=== PATIENT | female | born 1975 | race Caucasian/White ===

== ENCOUNTER 2018-11-01 11:46 | Emergency (ER) | payer OTHER ==
[~2018-11-01] VITALS: Ht 162.6 cm; Wt 68.0 kg
--- NOTE | 2018-11-01 12:20 | NUR ---
X-RAY AT BEDSIDE AT THIS TIME.
--- NOTE | 2018-11-01 12:38 | Diagnostic Imaging Report ---
RIGHT WRIST - 3 Images HISTORY: Fell, dancing COMPARISON: None available. FINDINGS: Bones: Subtle linear incomplete linear lucencies at the distal radius and ulna on the frontal view, oblique of the radius and longitudinal of the ulna. Joints: Osseous alignment is within normal limits and the joint spaces are well-maintained. Soft tissues: Regional soft tissue swelling. IMPRESSION: Findings which could be seen in the setting of nondisplaced distal radial and ulnar fractures, correlate for focal point tenderness. Signed by: Dr. Rasta Sumner D.O., M.M.M. on 11/01/2018 12:35 PM
--- NOTE | 2018-11-01 12:50 | NUR ---
VELCRO SPLINT APPLIED AT THIS TIME TO RT WRIST.
[2018-11-01 13:00] VITALS: BP 142/87
--- NOTE | 2018-11-01 13:00 | NUR ---
CYNDEE CRESPO, ENP AT BEDSIDE AT THIS TIME APPLYING SPLINT TO RT WRIST.
[2018-11-01] MEDS ORDERED: HYDROCODONE/APAP 10MG-325MG TAB PO ONE (13:15)
== END 2018-11-01 13:12 | disposition home or self-care (01) ==
LOC: ER 11:48
DX: S52.381A Bent bone of right radius, initial encounter for closed fracture (principal); W18.39XA Other fall on same level, initial encounter; Y92.511 Restaurant or cafe as the place of occurrence of the external cause
CPT/HCPCS: 99283

== ENCOUNTER 2020-08-18 09:11 | Inpatient (IN) | payer BC, OTHER ==
[~2020-08-18] VITALS: Ht 162.6 cm; Wt 74.8 kg
[2020-08-18 09:41] LABS: BASOPHILS # (AUTO) 0.1 (0.0-0.1); BASOPHILS % 0.3 % (0.0-1.0); EOSINOPHILS % 0.1 % (0.0-6.0); HEMOGLOBIN 11.9 g/dL (12.0-16.0); LYMPHOCYTES # (AUTO) 0.4 (1.0-3.2); LYMPHOCYTES % 1.6 % (18.0-39.1); MEAN CORPUSCULAR HEMOGLOBIN 28.4 pg (28-32); MEAN CORPUSCULAR HGB CONC 32.2 g/dL (31-35); MEAN CORPUSCULAR VOLUME 88.3 fL (81-99); MONOCYTES # (AUTO) 0.5 (0.2-0.8); MONOCYTES % 2.2 % (4.4-11.3); NEUTROPHILS # (AUTO) 20.9 (2.1-6.9); NEUTROPHILS % 94.8 % (38.7-80.0); PLATELET COUNT 235 x10e3/uL (140-360); RED BLOOD COUNT 4.19 x10e6/uL (3.6-5.1); RED CELL DISTRIBUTION WIDTH 14.8 % (11.7-14.4)
[2020-08-18] MEDS ORDERED: SODIUM CHLORIDE 0.9% 1000ML 1,000 ML IV STA (09:44)
[2020-08-18 09:58] LABS: CLARITY,URINE SL CLOUDY (CLEAR); COLOR,URINE YELLOW (YELLOW); LEUKOCYTE ESTERASE ,URINE TRACE (NEGATIVE); NITRITE,URINE POSITIVE (NEGATIVE)
[2020-08-18 09:59] LABS: BILIRUBIN,URINE SMALL (NEGATIVE); KETONES,URINE 2+ (NEGATIVE); PREGNANCY TEST, URINE NEGATIVE (NEGATIVE); PROTEIN,URINE DIPSTICK 1+ (NEGATIVE); URINE UROBILINOGEN 0.2 mg/dL (0.2 - 1)
[2020-08-18] MEDS ORDERED: KETOROLAC TROMETHAMINE 30 MG/ML VIAL IV STA (10:00)
[2020-08-18] MEDS ORDERED: ONDANSETRON HCL INJ 2MG/ML 2ML 2 MG/ML VIAL IV STA (10:00)
[2020-08-18 10:07] LABS: ALBUMIN 3.9 g/dL (3.5-5.0); ALBUMIN/GLOBULIN RATIO 1.1 (0.8-2.0); ANION GAP 13.5 mmol/L (8-16); CALCIUM 9.4 mg/dL (8.4-10.2); CREATININE, SERUM 1.08 mg/dL (0.57-1.11); POTASSIUM 3.5 mmol/L (3.5-5.1)
--- NOTE | 2020-08-18 10:18 | Emergency Department Note ---
History of Present Illnes History of Present Illness Chief Complaint: Genitourinary History of Present Illness This is a 45 year old female PT STATES SHE HAS BEEN HAVING "KIDNEY" PAIN SINCE YESTERDAY ACCOMPANIED WITH NAUSEA AND VOMITING. PT STATES SHE HAS A HX OF KIDNEY INFECTION AND HAS HAD A STENT PLACED 5 YEARS AGO. PT STATES SHE HAS ABD PAIN WELL. PT STATES SHE WENT TO AN URGENT CARE THIS AM PRIOR TO COMING TO ER. URGENT CARE ADVISED PT TO GO TO ER. 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 Any updates have been documented here. Past Medical History Recent Fever: No Clinical Suspicion of Infectio: No New/Unexplained Change in Ment: No Past Medical History: Kidney Stones Other Medical History: BREAT AUGMENTATION & TUMMY TUCK Past Surgical History: Tubal Ligation, Other Surgery: kidney stents cosmetic sx Social History Smoking Cessation: Never Smoker Counseling Performed: No Alcohol Use: None Any Illegal Drug Use: No TB Exposure/Symptoms: No Physically hurt or threatened: No Family History Family history of heart diseas: No Other Any Pre-Existing Lines (PICC,: No Review of Systems Review of Systems Constitutional: Reports no symptoms EENTM: Reports no symptoms Cardiovascular: Reports no symptoms Respiratory: Reports no symptoms Gastrointestinal: Reports nausea, Reports vomiting Genitourinary: Reports pain (LEFT FLANK) Musculoskeletal: Reports no symptoms Integumentary: Reports no symptoms Neurological: Reports no symptoms Psychological: Reports no symptoms Endocrine: Reports no symptoms Hematological/Lymphatic: Reports no symptoms Review of other systems: All other systems negative Physical Exam Related Data Allergies: Coded Allergies: No Known Allergies (Unverified , 11/01/18) Triage Vital Signs Vital Signs Date Time Temp Pulse Resp B/P (MAP) Pulse Ox O2 Delivery O2 Flow Rate FiO2 08/18/20 09:20 97.7 94 16 111/56 100 Room Air Vital signs reviewed: Yes Physical Exam CONSTITUTIONAL Constitutional: Present well-developed, Present well-nourished HENT HENT: Present normocephalic, Present atraumatic, Present oropharynx clear/moist, Present nose normal HENT L/R: Present left ext ear normal, Present right ext ear normal EYES Eyes: Reports PERRL, Reports conjunctivae normal NECK Neck: Present ROM normal PULMONARY Pulmonary: Present effort normal, Present breath sounds normal CARDIOVASCULAR Cardiovascular: Present regular rhythm, Present heart sounds normal, Present capillary refill normal, Present normal rate GASTROINTESTINAL Abdominal: Present soft, Present nontender, Present bowel sounds normal, Present left CVA tenderness GENITOURINARY Genitourinary: Present exam deferred SKIN Skin: Present warm, Present dry MUSCULOSKELETAL Musculoskeletal: Present ROM normal NEUROLOGICAL Neurological: Present alert, Present oriented x 3, Present no gross motor or sensory deficits PSYCHOLOGICAL Psychological: Present mood/affect normal, Present judgement normal Results Laboratory Result Diagram: 08/18/20 0925 Laboratory Laboratory Tests Test 08/18/20 09:25 White Blood Count 22.03 x10e3/uL (4.8-10.8) Red Blood Count 4.19 x10e6/uL (3.6-5.1) Hemoglobin 11.9 g/dL (12.0-16.0) Hematocrit 37.0 % (34.2-44.1) Mean Corpuscular Volume 88.3 fL (81-99) Mean Corpuscular Hemoglobin 28.4 pg (28-32) Mean Corpuscular Hemoglobin Concent 32.2 g/dL (31-35) Red Cell Distribution Width 14.8 % (11.7-14.4) Platelet Count 235 x10e3/uL (140-360) Neutrophils (%) (Auto) 94.8 % (38.7-80.0) Lymphocytes (%) (Auto) 1.6 % (18.0-39.1) Monocytes (%) (Auto) 2.2 % (4.4-11.3) Eosinophils (%) (Auto) 0.1 % (0.0-6.0) Basophils (%) (Auto) 0.3 % (0.0-1.0) Neutrophils # (Auto) 20.9 (2.1-6.9) Lymphocytes # (Auto) 0.4 (1.0-3.2) Monocytes # (Auto) 0.5 (0.2-0.8) Eosinophils # (Auto) 0.0 (0.0-0.4) Basophils # (Auto) 0.1 (0.0-0.1) Absolute Immature Granulocyte (auto 0.22 x10e3/uL (0-0.1) Urine Color Yellow (YELLOW) Urine Clarity Sl cloudy (CLEAR) Urine pH 7 (5 - 7) Urine Specific [place] 1.025 (1.010-1.025) Urine Protein 1+ (NEGATIVE) Urine Glucose (UA) Negative (NEGATIVE) Urine Ketones 2+ (NEGATIVE) Urine Blood Small (NEGATIVE) Urine Nitrite Positive (NEGATIVE) Urine Bilirubin Small (NEGATIVE) Urine Urobilinogen 0.2 mg/dL (0.2 - 1) Urine Leukocyte Esterase Trace (NEGATIVE) Urine RBC 11-20 /HPF (0-5) Urine WBC 6-10 /HPF (0-5) Urine Epithelial Cells Few /LPF (NONE) Urine Bacteria Rare /HPF (NONE) Urine Test Negative (NEGATIVE) Sodium Level 136 mmol/L (136-145) Potassium Level 3.5 mmol/L (3.5-5.1) Chloride Level 104 mmol/L (98-107) Carbon Dioxide Level 22 mmol/L (22-29) Anion Gap 13.5 mmol/L (8-16) Blood Urea Nitrogen 17 mg/dL (7-26) Creatinine 1.08 mg/dL (0.57-1.11) Estimat Glomerular Filtration Rate 55 ML/MIN (60-) BUN/Creatinine Ratio 16 (6-25) Glucose Level 101 mg/dL (74-118) Calcium Level 9.4 mg/dL (8.4-10.2) Total Bilirubin 0.5 mg/dL (0.2-1.2) Aspartate Amino Transf (AST/SGOT) 16 IU/L (5-34) Alanine Aminotransferase (ALT/SGPT) 10 IU/L (0-55) Alkaline Phosphatase 59 IU/L (40-150) Total Protein 7.6 g/dL (6.5-8.1) Albumin 3.9 g/dL (3.5-5.0) Globulin 3.7 g/dL (2.3-3.5) Albumin/Globulin Ratio 1.1 (0.8-2.0) Laboratory Tests Test 08/18/20 09:25 White Blood Count 22.03 x10e3/uL (4.8-10.8) Red Blood Count 4.19 x10e6/uL (3.6-5.1) Hemoglobin 11.9 g/dL (12.0-16.0) Hematocrit 37.0 % (34.2-44.1) Mean Corpuscular Volume 88.3 fL (81-99) Mean Corpuscular Hemoglobin 28.4 pg (28-32) Mean Corpuscular Hemoglobin Concent 32.2 g/dL (31-35) Red Cell Distribution Width 14.8 % (11.7-14.4) Platelet Count 235 x10e3/uL (140-360) Neutrophils (%) (Auto) 94.8 % (38.7-80.0) Lymphocytes (%) (Auto) 1.6 % (18.0-39.1) Monocytes (%) (Auto) 2.2 % (4.4-11.3) Eosinophils (%) (Auto) 0.1 % (0.0-6.0) Basophils (%) (Auto) 0.3 % (0.0-1.0) Neutrophils # (Auto) 20.9 (2.1-6.9) Lymphocytes # (Auto) 0.4 (1.0-3.2) Monocytes # (Auto) 0.5 (0.2-0.8) Eosinophils # (Auto) 0.0 (0.0-0.4) Basophils # (Auto) 0.1 (0.0-0.1) Absolute Immature Granulocyte (auto 0.22 x10e3/uL (0-0.1) Urine Color Yellow (YELLOW) Urine Clarity Sl cloudy (CLEAR) Urine pH 7 (5 - 7) Urine Specific [place] 1.025 (1.010-1.025) Urine Protein 1+ (NEGATIVE) Urine Glucose (UA) Negative (NEGATIVE) Urine Ketones 2+ (NEGATIVE) Urine Blood Small (NEGATIVE) Urine Nitrite Positive (NEGATIVE) Urine Bilirubin Small (NEGATIVE) Urine Urobilinogen 0.2 mg/dL (0.2 - 1) Urine Leukocyte Esterase Trace (NEGATIVE) Urine Test Negative (NEGATIVE) Imaging Imaging results reviewed: Yes Impressions EXAM: CT Abdomen and Pelvis WITHOUT intravenous contrast INDICATION: Flank pain COMPARISON: None. TECHNIQUE: Abdomen and pelvis were scanned utilizing a multidetector helical scanner from the lung base to the pubic symphysis without administration of IV contrast. Coronal and sagittal reformations were obtained. IV CONTRAST: None ORAL CONTRAST: Water COMPLICATIONS: None RADIATION DOSE: Total DLP: 394 mGy*cm Dose modulation, iterative reconstruction, and/or weight based adjustment of the mA/kV was utilized to reduce the radiation dose to as low as reasonably achievable. FINDINGS: LOWER THORAX: No lung base consolidation. Bilateral saline breast implants. HEPATOBILIARY: No focal hepatic lesions. No biliary ductal dilatation. The gallbladder appears unremarkable. SPLEEN: No splenomegaly. PANCREAS: No focal masses or ductal dilatation. ADRENALS: No adrenal nodules. KIDNEYS/URETERS: 8 mm left proximal ureteral calculus resulting in mild left hydronephrosis and proximal hydroureter. Additional 2 mm left upper and left lower pole renal calculi. Extensive left perinephric retroperitoneal fat stranding without focal fluid collection. There is also a 7 mm right proximal ureteral calculus. No right hydronephrosis or hydroureter. PELVIC ORGANS/BLADDER: Unremarkable. PERITONEUM / RETROPERITONEUM: No free air or fluid. LYMPH NODES: No lymphadenopathy. VESSELS: Scattered atherosclerotic arterial calcifications. GI TRACT: No distention or wall thickening. BONES AND SOFT TISSUES: Unremarkable. IMPRESSION: 8 mm left proximal ureteral obstructive calculus results in mild left hydronephrosis and proximal left hydroureter. Extensive left perinephric retroperitoneal fat stranding likely reflective of upper urinary tract infection. Additional 2 mm left upper and left lower pole renal calculi. 7 mm right proximal ureteral calculus without associated hydronephrosis or hydroureter. Signed by: Norberto Agosto MD on 08/18/2020 11:32 AM Assessment & Plan Medical Decision Making MDM FLANK PAIN, REMOTE HX OF KIDNEY STONE - CBC, CHEM, UA/CX, CT ABD/PELVIS - EVAL URETEROLITHIASIS, UTI/PYELO, RENAL INSUFF, ELECTROLYTE ABNL, LEUKOCYTOSIS Reassessment Reassessment ADMIT TO DR DODSON (FOR DR MATTSON), SPOKE WITH DR SEALS - SAYS CLEAR LIQ DIET, HE WILL SEE AND ASSESS FOR STENT Assessment & Plan Final Impression: (1) Pyelonephritis (2) Ureteral stone with hydronephrosis Depart Disposition: ADMITTED Last Vital Signs Date Time Temp Pulse Resp B/P (MAP) Pulse Ox O2 Delivery O2 Flow Rate FiO2 08/18/20 09:20 97.7 94 16 111/56 100 Room Air Medications in the ED Sodium Chloride 1,000 ml @ 0 mls/hr Q0M STAT IV Last administered on 08/18/20at 10:08; Admin Dose 999 MLS/HR; Start 08/18/20 at 09:44; Stop 08/18/20 at 09:45; Status DC Ondansetron HCl 4 mg ONCE STAT IV Last administered on 08/18/20at 10:08; Admin Dose 4 MG; Start 08/18/20 at 10:00; Stop 08/18/20 at 10:14; Status DC Ketorolac Tromethamine 30 mg ONCE STAT IV Last administered on 08/18/20at 10:08; Admin Dose 30 MG; Start 08/18/20 at 10:00; Stop 08/18/20 at 10:15; Status DC YULI ALLISON MD Aug 18, 2020 10:18
--- OUTSIDE RECORDS SUMMARY | 2020-08-18 10:18 | XMS REPORT | Continuity of Care Document ---
Author Author [facility] Organization [facility] Address [address] [place] [address] [address] [place] [address] Phone Unavailable Care Team Providers Care Surgical Assistant Certified Name Role Phone Tonny MATTSON MD PCP Jesús MENDOZA Unavailable Payers Payer Name Policy Type Policy Number Effective Date Expiration Date Jesús Martinez o [id number] 2015 00:00:00 [facility] Problems This patient has no known problems. Allergies, Adverse Reactions, Alerts This patient has no known allergies or adverse reactions. Medications This patient has no known medications. Procedures This patient has no known procedures. Encounters Start Date/Time End Date/Time [facility]counter [facility] ID Source 2018-11-01 11:48:00 2018-11-01 13:12:00 Departed Emergency Room 1 NIDA MENDOZA [facility] [id number] [facility] Results Test Description Test Time Test Comments Results Result Comments Source WRIST COMPLETE RIGHT 2018-11-01 12:32:00 [facility] [address] [place], [place] [address] Patient Name: JED CRUZ MR #: [id number] : 1975 Age/Sex: 43/F Req #: [id number] Adm Physician: Ordered by: NIDA MENDOZA MD Report #: [id number] Location: ER Room/Bed: Procedure: [id number] DX/WRIST COMPLETE RIGHT Exam Date: 11/01/18 Exam Time: 1220 REPORT STATUS: Signed RIGHT WRIST - 3 Images HISTORY: Fell, dancing COMPARISON: None available. FINDINGS: Bones: Subtle linear incomplete linear lucencies at the distal radius and ulna on the frontal view, oblique of the radius and longitudinal of the ulna. Joints: Osseous alignment is within normal limits and the joint spaces are well-maintained. Soft tissues: Regional soft tissue swelling. IMPRESSION: Findings which could be seen in the setting of nondisplaced distal radial and ulnar fractures, correlate for focal point tenderness. Signed by: Prosper MartinezODavid, M.M.M. on 11/01/2018 12:35 PM Dictated By: LEONARD SALCEDO DO 1235 Transcribed By: SHAHID on 11/01/18 1235 COPY TO: NIDA MENDOZA MD
[2020-08-18 10:21] LABS: BACTERIA,URINE RARE /HPF; EPITHELIAL CELLS,URINE FEW /LPF
[2020-08-18] MEDS ORDERED: CEFTRIAXONE SOD 1 GM/NS 50 ML 50 ML IV ONE (11:00)
--- NOTE | 2020-08-18 11:35 | Diagnostic Imaging Report ---
EXAM: CT Abdomen and Pelvis WITHOUT intravenous contrast INDICATION: Flank pain COMPARISON: None. TECHNIQUE: Abdomen and pelvis were scanned utilizing a multidetector helical scanner from the lung base to the pubic symphysis without administration of IV contrast. Coronal and sagittal reformations were obtained. IV CONTRAST: None ORAL CONTRAST: Water COMPLICATIONS: None RADIATION DOSE: Total DLP: 394 mGy*cm Dose modulation, iterative reconstruction, and/or weight based adjustment of the mA/kV was utilized to reduce the radiation dose to as low as reasonably achievable. FINDINGS: LOWER THORAX: No lung base consolidation. Bilateral saline breast implants. HEPATOBILIARY: No focal hepatic lesions. No biliary ductal dilatation. The gallbladder appears unremarkable. SPLEEN: No splenomegaly. PANCREAS: No focal masses or ductal dilatation. ADRENALS: No adrenal nodules. KIDNEYS/URETERS: 8 mm left proximal ureteral calculus resulting in mild left hydronephrosis and proximal hydroureter. Additional 2 mm left upper and left lower pole renal calculi. Extensive left perinephric retroperitoneal fat stranding without focal fluid collection. There is also a 7 mm right proximal ureteral calculus. No right hydronephrosis or hydroureter. PELVIC ORGANS/BLADDER: Unremarkable. PERITONEUM / RETROPERITONEUM: No free air or fluid. LYMPH NODES: No lymphadenopathy. VESSELS: Scattered atherosclerotic arterial calcifications. GI TRACT: No distention or wall thickening. BONES AND SOFT TISSUES: Unremarkable. IMPRESSION: 8 mm left proximal ureteral obstructive calculus results in mild left hydronephrosis and proximal left hydroureter. Extensive left perinephric retroperitoneal fat stranding likely reflective of upper urinary tract infection. Additional 2 mm left upper and left lower pole renal calculi. 7 mm right proximal ureteral calculus without associated hydronephrosis or hydroureter. Signed by: Norberto Agosto MD on 08/18/2020 11:32 AM
[2020-08-18] MEDS ORDERED: MORPHINE SULFATE 2 MG/ML SYR 1ML IV PRN ×2 (12:15→12:45)
[2020-08-18] MEDS: SODIUM CHLORIDE 0.9% 1000ML 1,000 ML IV SCH (12:34)
[2020-08-18] MEDS ORDERED: MORPHINE SULFATE INJ 4 MG/ML INJ 1ML IV PRN ×2 (12:45→15:45)
--- OUTSIDE RECORDS SUMMARY | 2020-08-18 13:18 | XMS REPORT | Continuity of Care Document ---
Author Author [facility] Organization [facility] Address [address] [place] [address] Phone Unavailable Care Team Providers Care Field Consultant Name Role Phone Tonny MATTSON MD PCP Moreno ALLISON Attphys Unavailable Jesús MENDOZA Attphys Unavailable Payers Payer Name Policy Type Policy Number Effective Date Expiration Date Jesús Martinez o [id number] 2015 00:00:[address] [facility] Problems This patient has no known problems. Allergies, Adverse Reactions, Alerts This patient has no known allergies or adverse reactions. Medications This patient has no known medications. Procedures This patient has no known procedures. Encounters Start Date/Time End Date/Time [facility]counter Type [facility] ID Source 2018-11-01 11:48:00 2018-11-01 13:12:00 Departed Emergency Room 1 NIDA MENDOZA [facility] [id number] [facility] Results Test Description Test Time Test Comments Results Result Comments Source CT ABDOMEN/PELVIS WO 2020-08-18 11:25:00 [facility] : 1975 Sex: F [facility] [address] [place] [address] Patient Name: JED LANIER MR #: [id number] : 1975 Age/Sex[facility] 45[id number] Req #: [id number] [facility] Physician: Ordered by: YULI ALLISON MD Report #: [id number] Location: ER Room/Bed: Procedure: [id number] CT/CT ABDOMEN/PELVIS WO Exam Date: 08/18/20 Exam Time: 1033 REPORT STATUS: Signed EXAM: CT Abdomen and Pelvis WITHOUT intravenous contrast INDICATION: Flank pain COMPARISON: None. TECHNIQUE: Abdomen and pelvis were scanned utilizing a multidetector helical scanner from the lung base to the pubic symphysis without administration of IV contrast. Coronal and sagittal reformations were obtained. IV CONTRAST: None ORAL CONTRAST: Water COMPLICATIONS: None RADIATION DOSE: Total DLP: 394 mGy*cm Dose modulation, iterative reconstruction, and/or weight based adjustment of the mA/kV was utilized to reduce the radiation dose to as low as reasonably achievable. FINDINGS: LOWER THORAX: No lung base consolidation. Bilateral saline breast implants. HEPATOBILIARY: No focal hepatic lesions. No biliary ductal dilatation. The gallbladder appears unremarkable. SPLEEN: No splenomegaly. PANCREAS: No focal masses or ductal dilatation. ADRENALS: No adrenal nodules. KIDNEYS/URETERS: 8 mm left proximal ureteral calculus resulting in mild left hydronephrosis and proximal hydroureter. Additional 2 mm left upper and left lower pole renal calculi. Extensive left perinephric retroperitoneal fat stranding without focal fluid collection. There is also a 7 mm right proximal ureteral calculus. No right hydronephrosis or hydroureter. PELVIC ORGANS/BLADDER: Unremarkable. PERITONEUM / RETROPERITONEUM: No free air or fluid. LYMPH NODES: No lymphadenopathy. VESSELS: Scattered atherosclerotic arterial calcifications. GI TRACT: No distention or wall thickening. BONES AND SOFT TISSUES: Unremarkable. IMPRESSION: 8 mm left proximal ureteral obstructive calculus results in mild left hydronephrosis and proximal left hydroureter. Extensive left perinephric retroperitoneal fat stranding likely reflective of upper urinary tract infection. Additional 2 mm left upper and left lower pole renal calculi. 7 mm right proximal ureteral calculus without associated hydronephrosis or hydroureter. Signed by: Hernando Agosto MD on 08/18/2020 11:32 AM Dictated By: HERNANDO AGOSTO MD 113 Transcribed By: SHAHID on 08/18/20 113 COPY TO: YULI ALLISON MD WRIST COMPLETE RIGHT 2018-11-01 12:32:00 [place] [address] Patient Name: JED CRUZ MR #: [id number] : 1975 Age/Sex: 43/F Req #: [id number] Adm Physician: Ordered by: NIDA MENDOZA MD Report #: [id number] Location: ER Room/Bed: Procedure: [id number] DX/WRIST COMPLETE RIGHT Exam Date: 11/01/18 Exam [...] correlate for focal point tenderness. Signed by: Dr. Leonard Sumner D.O., M.M.M. on 11/01/2018 12:35 PM Dictated By: LEONARD SUMNER DO 1235 Transcribed By: SHAHID on 11/01/18 1235 COPY TO: NIDA MENDOZA MD
[2020-08-18] MEDS ORDERED: TERBINAFINE HC250 MG PO (13:42)
[2020-08-18 13:46] VITALS: BP 103/83
[2020-08-18] MEDS ORDERED: ONDANSETRON HCL INJ 2MG/ML 2ML 2 MG/ML VIAL ONE (14:09)
[2020-08-18] MEDS ORDERED: DEXAMETHASONE SOD PHOS INJ 4 MG/ML VIAL ONE (14:09)
[2020-08-18] MEDS ORDERED: SEVOFLURANE INHAL SOLN 250 ML PEN BTL ONE (14:09)
[2020-08-18] MEDS ORDERED: LIDOCAINE HCL 2% LOCAL INJ 5 ML SDV VIAL INJ ONE (14:09)
[2020-08-18] MEDS ORDERED: PROPOFOL IV EMULSION 10 MG/ML 20 ML VIAL ONE (14:09)
[2020-08-18] MEDS ORDERED: EPHEDRINE SULFATE INJ 50 MG/ML VIAL ONE (14:09)
--- NOTE | 2020-08-18 14:15 | NUR ---
Received report from CLIFTON Castanon in ER at 1316. Patient arrived to unit at 1325. Patient is AOx3. at bedside. Patient IV C/D/I in right AC 20g. Patient ambulatory. Patient oriented to room, procedures, and plan of care. Patient oriented to bedside shift report and the whiteboard with hourly rounding. Patient verbalized understanding. Patient and had no questions at this time. All MD aware of patient arrival to unit.
[2020-08-18] MEDS ORDERED: HYDRALAZINE HCL 20 MG/ML VIAL IV PRN (15:45)
[2020-08-18] MEDS ORDERED: PHENTERMINE HCL15 MG (15:58)
[2020-08-18 16:00] VITALS: BP 99/66
[2020-08-18] MEDS: HYDROCODONE/APAP 5MG-325MG TAB PO PRN (16:06)
[2020-08-18] MEDS: FAMOTIDINE 20 MG TAB PO SCH (16:06)
[2020-08-18] MEDS: MORPHINE SULFATE 2 MG/ML SYR 1ML IV PRN ×2 (16:49→23:10)
--- NOTE | 2020-08-18 16:52 | NUR ---
Called Dr. Pillai at 1652, per his orders, due to patient spiking a fever of 100.6. No new orders given.
[2020-08-18 17:13] VITALS: BP 99/66
[2020-08-18] MEDS ORDERED: GENTAMICIN 120MG/NS 100ML 100 ML IV ONE (17:30)
--- NOTE | 2020-08-18 18:30 | Consultation ---
DATE OF CONSULTATION: 08/18/2020 Urology Consultation REASON FOR CONSULTATION: Obstructive uropathy. HISTORY OF PRESENT ILLNESS: Robinson Frank is a 45-year-old woman with previous urolithiasis. The patient in July 2015 underwent stone management and ureteroscopy and placement of a left stent. The patient has not followed up on a long-term basis. She had left-sided flank pain, nausea, and vomiting starting last night reported the emergency room and was subsequently admitted. The patient denies any fevers, and she now denies dysuria. PAST MEDICAL AND SURGICAL HISTORY: 1. Status post breast augmentation. 2. Status post abdominoplasty. 3. Status post tubal ligation. 4. History of section. 5. Cosmetic surgery. 6. History of urinary tract infections. 7. History of candiduria. ALLERGIES: NONE KNOWN. CURRENT MEDICATIONS: Please refer to the MAR. SOCIAL HISTORY: The patient denies smoking, ethanol, and drug use. FAMILY HISTORY: Noncontributory to the active urological problems. REVIEW OF SYSTEMS: As discussed above in the history of present illness and past medical history, otherwise negative for all systems. PHYSICAL EXAMINATION: GENERAL: Healthy-appearing 45-year-old woman, lying in bed, in no apparent distress. VITAL SIGNS: She is currently afebrile. Vital signs are currently stable. ABDOMEN: Soft and nondistended. She has left-sided costovertebral angle tenderness. Kidneys are not palpable without hepatosplenomegaly. No obvious evidence of hernia. For the remaining physical examination systems, please refer to the ER T-sheet as well as history and physical. LABORATORY STUDIES: White blood cell count is now 22,030, hemoglobin 11.9, and platelets 235,000. The patient's urinalysis significant for 11-20 rbc's, 6-10 wbc's with rare bacteria, nitrite positive urine. She has 1+ proteinuria. Her COVID test is pending. CT scan of the abdomen and pelvis revealed an 8 mm proximal left ureteral stone with mild left hydroureteronephrosis. There is 2 mm left upper pole and left lower pole stones as well. There is also 7 mm right proximal ureteral stone without any hydronephrosis. Urine and blood cultures are pending. ASSESSMENT: 1. Left renal colic. 2. Leukocytosis. 3. Anemia. 4. Microhematuria. 5. Urinary tract infection. 6. Proteinuria. 7. Bilateral ureterolithiasis. 8. Left nephrolithiasis. 9. Left hydronephrosis due to stone. PLAN: 1. Admit to the hospital. 2. Intravenous antibiotics. 3. Straining all the urine. 4. We will await the patient's COVID status as well as culture and sensitivities prior to pursuing cystoscopy with placement of bilateral stents in preparation with stone management later. Should the patient spike a temperature, we will take her urgently to the operating room for cystoscopy and placement of stents. Thank you much for involving us in the care of your patient. We will be happy to follow her along with you as well as an outpatient. Cedrick MD SOFI Pillai/ELEAZAR /[id number] cc: Dr. Carnes
--- NOTE | 2020-08-18 19:00 | NUR ---
RECEIVED REPORT FROM PREVIOUS NURSE. CALL LIGHT WITHIN REACH. PATIENT IN BED. PATIENT IN NO DISTRESS.
[2020-08-18 19:35] VITALS: BP 92/62
[2020-08-18] MEDS: CEFTRIAXONE SOD 1 GM/NS 50 ML 50 ML IV SCH (21:14)
[2020-08-18] MEDS: ONDANSETRON HCL INJ 2MG/ML 2ML 2 MG/ML VIAL IV PRN (23:10)
--- NOTE | 2020-08-18 23:30 | NUR ---
CALLED DR. DODSON OFFICE AND TALKED TO MARA ESTES ABOUT THE LAB CULTURE RESULTS, IT CAME POSITIVE IN THE AEROBIC BOTTLE FOR GRAM VARIABLE RODS. FRANKLYN ASKED IF THE PATIENT IS ON ANTIBIOTICS AND IF THEY HAVE A FEVER. TOLD FRANKLYN THAT DURING THE DAY THE PATIENT HAD A SLIGHT FEVER BUT NOW THE PATIENT DOES NOT AND THE PATIENT IS GETTING ROCEPHIN. FRANKLYN SAID THEY WILL SEE HOW IT IS TOMORROW.
[2020-08-19] VITALS (9 sets, daily range): BP systolic 83–101; BP diastolic 58–71
[2020-08-19] MEDS: HYDROCODONE/APAP 5MG-325MG TAB PO PRN (00:47)
[2020-08-19] MEDS ORDERED: SODIUM CHLORIDE 0.9% 1000ML 1,000 ML IV ONE (01:00)
--- NOTE | 2020-08-19 01:00 | NUR ---
CALLED DR. SEALS AND TOLD HIM THAT THE PATIENT HAS A TEMPERATURE OF 100.1 AND BP OF 83/58. I TOLD DR. SEALS THE TEMPERATURE AND BP WHEN I CAME HERE. DR. SEALS SAID TO GIVE A BOLUS 500CC NORMAL SALINE WIDE OPEN AND INCREASE IV FLUIDS TO 125ML/HR. Addendum: 08/19/20 at 0123 by Opal Garcia RN DR. SEALS ALSO SAID TO CALL HIM IF HER TEMPERATURE GOES ABOVE 101 Addendum: 08/19/20 at 0210 by Opal Garcia RN DR. SEALS ALSO PLACED THE PATIENT NPO Addendum: 08/19/20 at 0216 by Opal Garcia RN DR. SEALS SAID TO PLACE THE PATIENT NPO
[2020-08-19] MEDS ORDERED: SODIUM CHLORIDE 0.9% 500ML 500 ML ONE (01:12)
[2020-08-19] MEDS: SODIUM CHLORIDE 0.9% 1000ML 1,000 ML IV SCH ×4 (01:21→23:22)
[2020-08-19 06:58] LABS: ALANINE AMINOTRANSFERASE 9 IU/L (0-55); ALBUMIN 2.5 g/dL (3.5-5.0); ALBUMIN/GLOBULIN RATIO 0.8 (0.8-2.0); ALKALINE PHOSPHATASE 61 IU/L (40-150); ANION GAP 11.5 mmol/L (8-16); BLOOD UREA NITROGEN 16 mg/dL (7-26); BUN/CREATININE RATIO 16 (6-25); CALCIUM 7.9 mg/dL (8.4-10.2); CARBON DIOXIDE 20 mmol/L (22-29); CHLORIDE 107 mmol/L (98-107); CREATININE, SERUM 0.98 mg/dL (0.57-1.11); EST GLOMERULAR FILTRATION RATE > 60 ML/MIN (60-); GLUCOSE 85 mg/dL (74-118); POTASSIUM 3.5 mmol/L (3.5-5.1); SODIUM 135 mmol/L (136-145)
[2020-08-19 07:01] LABS: BASOPHILS # (AUTO) 0.1 (0.0-0.1); BASOPHILS % 0.4 % (0.0-1.0); EOSINOPHILS # (AUTO) 0.1 (0.0-0.4); EOSINOPHILS % 0.7 % (0.0-6.0); HEMOGLOBIN 9.6 g/dL (12.0-16.0); LYMPHOCYTES # (AUTO) 0.5 (1.0-3.2); LYMPHOCYTES % 2.4 % (18.0-39.1); MEAN CORPUSCULAR HEMOGLOBIN 28.3 pg (28-32); MEAN CORPUSCULAR VOLUME 88.5 fL (81-99); MONOCYTES # (AUTO) 0.7 (0.2-0.8); MONOCYTES % 3.7 % (4.4-11.3); NEUTROPHILS # (AUTO) 17.1 (2.1-6.9); NEUTROPHILS % 89.7 % (38.7-80.0); PLATELET COUNT 157 x10e3/uL (140-360); RED BLOOD COUNT 3.39 x10e6/uL (3.6-5.1)
[2020-08-19] MEDS: ONDANSETRON HCL INJ 2MG/ML 2ML 2 MG/ML VIAL IV PRN ×2 (07:02→21:35)
[2020-08-19] MEDS: MORPHINE SULFATE 2 MG/ML SYR 1ML IV PRN ×4 (07:02→21:34)
--- NOTE | 2020-08-19 07:21 | NUR ---
GAVE BEDSIDE SHIFT REPORT TO ONCOMING NURSE. CALL LIGHT WITHIN REACH. PATIENT IN BED. HOURLY ROUNDING PERFORMED.
[2020-08-19] MEDS: CEFTRIAXONE SOD 1 GM/NS 50 ML 50 ML IV SCH ×2 (07:44→21:34)
[2020-08-19] MEDS: FAMOTIDINE 20 MG TAB PO SCH ×2 (07:44→17:03)
[2020-08-19 08:59] LABS: BAND NEUTROPHILS % (MANUAL) 18 %; EOSINOPHILS % (MANUAL) 1 % (0-7); LYMPHOCYTES % (MANUAL) 4 % (19-48); MONOCYTES % (MANUAL) 1 % (3.4-9.0); NEUTROPHILS % (MANUAL) 76 % (40-74)
[2020-08-19 09:01] LABS: PLATELET ESTIMATE ADEQUATE; PLATELET MORPHOLOGY COMMENT NORMAL; RBC MORPHOLOGY COMMENT NORMAL
[2020-08-19] MEDS ORDERED: B&O 60MG R/S 60 MG SUPP PR ONE (09:28)
[2020-08-19] MEDS ORDERED: IOPAMIDOL 300MG/ML 50ML INFUS..BTL IV ONE (09:29)
[2020-08-19] MEDS ORDERED: MIDAZOLAM HCL 2 MG/2 ML VIAL ONE (09:44)
[2020-08-19] MEDS ORDERED: FENTANYL CITRATE/PF 100MCG/2 ML INJ ONE (09:45)
[2020-08-19] MEDS ORDERED: ACETAMINOPHEN 1000 MG/100 ML 100 ML IV ONE (10:41)
[2020-08-19] MEDS ORDERED: PHENAZOPYRIDINE HCL 100 MG TAB PO PRN (11:00)
[2020-08-19] MEDS ORDERED: B&O 60MG R/S 60 MG SUPP PR PRN (11:00)
[2020-08-19] MEDS: PIPER-TAZ 3.375 GM 50 ML IV SCH ×3 (12:37→23:22)
[2020-08-19] MEDS: FLUCONAZOLE 100 MG TAB PO SCH (12:37)
[2020-08-19] MEDS: OXYBUTYNIN CHLORIDE 5 MG TAB PO SCH ×2 (15:00→21:34)
[2020-08-19] MEDS: DOCUSATE SODIUM 100 MG CAP PO SCH (17:03)
--- NOTE | 2020-08-19 18:53 | NUR ---
RECEIVED BEDSIDE SHIFT REPORT FROM PREVIOUS NURSE. CALL LIGHT WITHIN REACH. PATIENT IN BED. AT BEDSIDE. PATIENT IS A&OX3 AND AMBULATES
[2020-08-20] VITALS (9 sets, daily range): BP systolic 88–127; BP diastolic 54–85
--- NOTE | 2020-08-20 00:59 | Operative Report ---
DATE OF PROCEDURE: 08/19/2020 SURGEON: Cedrick Pillai MD PREOPERATIVE DIAGNOSES: 1. Bilateral hydronephrosis due to stone. 2. Microhematuria. 3. Urinary tract infection (urosepsis). POSTOPERATIVE DIAGNOSES: 1. Bilateral hydronephrosis due to stone. 2. Microhematuria. 3. Urinary tract infection (urosepsis). 4. Grade 2 to 3 cystocele. 5. Urethral hypermobility. 6. Grade 1 uterine prolapse. 7. Candidal vaginitis. OPERATIONS PERFORMED: 1. Cystourethroscopy with bilateral ureteral catheterization and retrograde ureteral pyelography (separate procedure performed for the urinary tract infection and hematuria). 2. Interpretation of retrograde ureteropyelography. 3. Supervision of fluoroscopy. No radiologist was present. 4. Cystourethroscopy with insertion of bilateral indwelling ureteral stents (separate procedure performed to relieve the hydronephrosis). ANESTHESIA: General. COMPLICATIONS: None. CLINICAL SUMMARY: Please refer to consultation dictation from yesterday. The patient overnight had persistent low-grade fevers. She did have mild hypotension. Therefore, after reviewing to the operating room, we were notified that the patient's blood cultures were positive. The patient is aware of the risks of bleeding, infection, injury to adjacent structures, need for additional procedures and elected to proceed. She understands ureteral stents require followup and removal. The patient had stents previously. She understood all these risks and elected to proceed. OPERATIVE PROCEDURE IN DETAIL: Informed consent was verified. Robinson Frank was properly identified, taken to the operating room, placed on the cystoscopy table in supine position. Anesthesia was uneventfully begun. The patient was gently repositioned in the dorsal lithotomy position with all pressure points well padded. Her genitalia was prepared and draped in usual sterile fashion. The cystoscope sheath with obturator in place was atraumatically inserted into the patient's urethra and bladder was drained. Panendoscopy revealed no suspicious mucosal lesions, no tumors, no stones, no diverticula. Normally positioned and configured ureteral orifices were identified. A 5-Cuban open-ended ureteral catheter retrograde ureteropyelogram was performed. A hydrophilic guidewire past the impacted left proximal ureteral stone. This allowed us to place the open ended catheter into the patient's kidney and thick purulent urine was obtained from the left hydronephrotic drip. We then replaced the wire patient's kidney as well as the patient's bladder. The retaining sutures were cut short. An identical maneuver was performed on the right hand side utilized 6-Cuban x 26 cm indwelling ureteral stent and the hydronephrotic drip from the right side was clear. The patient's bladder was drained. Cystoscope was withdrawn. Interpretation of retrograde ureteropyelography contrast was instilled in retrograde fashion bilaterally. We could see the calcification in the proximal left ureter consistent with the stone that proved to be a filling defect on retrograde pyelograms. There was fairly severe left-sided hydronephrosis. The stent was in good position, coiled to the patient's kidneys as well as the patient's bladder. On the right side, there was a proximal ureteral stone and it was also obstructing, although there was only a mild degree of hydronephrosis on the right hand side, that stent was also in good position as well as the patient's kidney as well as the patient's bladder. Pelvic examination under anesthesia revealed a grade 2-3 cystocele with urethral hypermobility and grade 1 uterine prolapse. There was whitish discharge within the vagina consistent with a candidal vaginitis. The patient was then uneventfully reversed from anesthesia and taken to recovery room in stable condition. There were no complications to the procedure. She tolerated the procedure well. Estimated blood loss was minimal. Specimens included left culture and sensitivity. Exclusive postoperative instructions were left on the chart. We will next step in stone management. Cedrick Pillai MD [place]/KIRSTENL /[id number]
[2020-08-20] MEDS: ONDANSETRON HCL INJ 2MG/ML 2ML 2 MG/ML VIAL IV PRN (01:46)
[2020-08-20] MEDS: MORPHINE SULFATE 2 MG/ML SYR 1ML IV PRN ×2 (01:46→09:27)
[2020-08-20] MEDS: PIPER-TAZ 3.375 GM 50 ML IV SCH ×5 (06:00→17:10)
[2020-08-20 06:15] LABS: BASOPHILS % 0.2 % (0.0-1.0); EOSINOPHILS % 0.2 % (0.0-6.0); HEMATOCRIT 27.7 % (34.2-44.1); HEMOGLOBIN 9.2 g/dL (12.0-16.0); LYMPHOCYTES # (AUTO) 0.6 (1.0-3.2); LYMPHOCYTES % 3.6 % (18.0-39.1); MEAN CORPUSCULAR HEMOGLOBIN 29.4 pg (28-32); MEAN CORPUSCULAR HGB CONC 33.2 g/dL (31-35); MEAN CORPUSCULAR VOLUME 88.5 fL (81-99); MONOCYTES # (AUTO) 0.6 (0.2-0.8); MONOCYTES % 3.9 % (4.4-11.3); NEUTROPHILS # (AUTO) 14.7 (2.1-6.9); PLATELET COUNT 147 x10e3/uL (140-360); RED BLOOD COUNT 3.13 x10e6/uL (3.6-5.1); RED CELL DISTRIBUTION WIDTH 15.3 % (11.7-14.4)
[2020-08-20 06:29] LABS: ANION GAP 10.7 mmol/L (8-16); CALCIUM 8.6 mg/dL (8.4-10.2); CREATININE, SERUM 1.01 mg/dL (0.57-1.11); POTASSIUM 3.7 mmol/L (3.5-5.1)
--- NOTE | 2020-08-20 07:15 | NUR ---
GAVE BEDSIDE SHIFT REPORT TO ONCOMING NURSE. CALL LIGHT WITHIN REACH. PATIENT IN BED. HOURLY ROUNDING PERFORMED.
--- NOTE | 2020-08-20 08:00 | NUR ---
Received report from off going nurse, pt sleeping in bed and no apparent distress, bed in lowest position and call rosa within reach.
[2020-08-20] MEDS: FLUCONAZOLE 100 MG TAB PO SCH (09:30)
[2020-08-20] MEDS: DOCUSATE SODIUM 100 MG CAP PO SCH ×2 (09:30→16:45)
[2020-08-20] MEDS: FAMOTIDINE 20 MG TAB PO SCH ×2 (09:30→16:45)
[2020-08-20] MEDS: OXYBUTYNIN CHLORIDE 5 MG TAB PO SCH ×3 (09:30→21:52)
[2020-08-20] MEDS: CEFTRIAXONE SOD 1 GM/NS 50 ML 50 ML IV SCH ×2 (10:15→21:52)
[2020-08-20] MEDS ORDERED: MORPHINE SULFATE 2 MG/ML SYR 1ML IV PRN (11:00)
[2020-08-20] MEDS: SODIUM CHLORIDE 0.9% 1000ML 1,000 ML IV SCH ×2 (11:03→21:45)
[2020-08-20] MEDS: ACETAMINOPHEN 325 MG TAB PO PRN ×2 (11:55→23:21)
[2020-08-20] MEDS: HYDROCODONE/APAP 7.5MG-325MG 1 EA TAB PO PRN ×2 (12:45→18:55)
--- NOTE | 2020-08-20 18:55 | NUR ---
RECEIVED BEDSIDE SHIFT REPORT FROM PREVIOUS NURSE. CALL LIGHT WITHIN REACH. PATIENT IN BED. AT BEDSIDE. PAIN MEDICATION ADMINISTERED.
--- NOTE | 2020-08-20 19:10 | NUR ---
Report given to on coming nurse. Pt lying in bed and no apparent distress. Pt received Alkol for pain at 1855.
--- NOTE | 2020-08-20 23:20 | NUR ---
CALLED DR. SEALS'S OFFICE TO LET HIM KNOW THE PATIENT SPIKED A TEMPERATURE OF 101.7. WAITING FOR DR. SEALS TO CALL BACK. ADMINISTERED ACETAMINOPHEN FOR THE FEVER
[2020-08-21] VITALS (9 sets, daily range): BP systolic 97–146; BP diastolic 66–90
[2020-08-21] MEDS: HYDROCODONE/APAP 7.5MG-325MG 1 EA TAB PO PRN ×4 (01:01→19:28)
[2020-08-21] MEDS: PIPER-TAZ 3.375 GM 50 ML IV SCH ×2 (05:32→11:56)
[2020-08-21 05:51] LABS: BASOPHILS % 0.3 % (0.0-1.0); EOSINOPHILS # (AUTO) 0.2 (0.0-0.4); HEMATOCRIT 26.6 % (34.2-44.1); HEMOGLOBIN 8.6 g/dL (12.0-16.0); LYMPHOCYTES # (AUTO) 0.6 (1.0-3.2); LYMPHOCYTES % 8.4 % (18.0-39.1); MEAN CORPUSCULAR HEMOGLOBIN 27.8 pg (28-32); MEAN CORPUSCULAR HGB CONC 32.3 g/dL (31-35); MEAN CORPUSCULAR VOLUME 86.1 fL (81-99); MONOCYTES # (AUTO) 0.6 (0.2-0.8); MONOCYTES % 7.2 % (4.4-11.3); NEUTROPHILS # (AUTO) 6.1 (2.1-6.9); NEUTROPHILS % 80.6 % (38.7-80.0); PLATELET COUNT 144 x10e3/uL (140-360); RED BLOOD COUNT 3.09 x10e6/uL (3.6-5.1)
[2020-08-21 06:12] LABS: ALANINE AMINOTRANSFERASE 35 IU/L (0-55); ALBUMIN 1.9 g/dL (3.5-5.0); ALBUMIN/GLOBULIN RATIO 0.5 (0.8-2.0); ALKALINE PHOSPHATASE 128 IU/L (40-150); ANION GAP 12.1 mmol/L (8-16); BLOOD UREA NITROGEN 9 mg/dL (7-26); BUN/CREATININE RATIO 10 (6-25); CALCIUM 8.1 mg/dL (8.4-10.2); CARBON DIOXIDE 19 mmol/L (22-29); CHLORIDE 110 mmol/L (98-107); CREATININE, SERUM 0.91 mg/dL (0.57-1.11); EST GLOMERULAR FILTRATION RATE > 60 ML/MIN (60-); GLUCOSE 89 mg/dL (74-118); POTASSIUM 3.1 mmol/L (3.5-5.1); SODIUM 138 mmol/L (136-145)
[2020-08-21] MEDS: SODIUM CHLORIDE 0.9% 1000ML 1,000 ML IV SCH ×3 (06:22→22:48)
--- NOTE | 2020-08-21 07:25 | NUR ---
GAVE BEDSIDE SHIFT REPORT TO ONCOMING NURSE. CALL LIGHT WITHIN REACH. PATIENT IN BED. HOURLY ROUNDING PERFORMED.
[2020-08-21] MEDS ORDERED: POTASSIUM CHLORIDE 20 MEQ TAB CR PO ONE (08:30)
[2020-08-21] MEDS: OXYBUTYNIN CHLORIDE 5 MG TAB PO SCH ×3 (09:25→20:12)
[2020-08-21] MEDS: FAMOTIDINE 20 MG TAB PO SCH ×2 (09:25→15:34)
[2020-08-21] MEDS: FLUCONAZOLE 100 MG TAB PO SCH (09:25)
[2020-08-21] MEDS: DOCUSATE SODIUM 100 MG CAP PO SCH ×2 (09:25→15:34)
[2020-08-21] MEDS: CEFTRIAXONE SOD 1 GM/NS 50 ML 50 ML IV SCH (09:27)
--- NOTE | 2020-08-21 12:31 | NUR ---
INFECTIOUS DISEASE CONSULT NOTE DR. SANDRA HUDDLESTON CC: back pain, fever REASON FOR CONSULT: UTI HPI:45-year-old woman with previous urolithiasis. The patient in July 2015 underwent stone management and ureteroscopy and placement of a left stent. The patient has not followed up on a long-term basis. She had left-sided flank pain, nausea, and vomiting starting last night reported the emergency room and was subsequently admitted. The patient denies any fevers, and she now denies dysuria. PMH: Obesity SURGICAL HX: n/a SOCIAL HX: denies smoking/drinking FAMILY HX: HTN ROS: back pain PERTINENT POS DOCUMENTED ABOVE PHYSICAL EXAM VS: per chart GENERAL: alert, awake, oriented HEENT: atraumatic, normocephalic CV: s1, s2, no s3, s4 CHEST: rhonchi, symmetric expansion ABD: soft, non-tender, non-distended EXT: moves all, no joint swelling NEURO: no large deficits LABS: reviewed RADIOLOGY: reviewed IMPRESSION: 8 mm left proximal ureteral obstructive calculus results in mild left hydronephrosis and proximal left hydroureter. Extensive left perinephric retroperitoneal fat stranding likely reflective of upper urinary tract infection. Additional 2 mm left upper and left lower pole renal calculi. 7 mm right proximal ureteral calculus without associated hydronephrosis or hydroureter. IMPRESSION: UTI Leukocytosis Sepsis present on admission Bacteremia, gram neg present on admission PLAN: Rocephin x2 weeks I will arrange for the home antibiotics through the infusion center Midline placement Can discharge when fever free for 24 hours It is very common to run fever for up to 5 days on the correct antibiotics Carmen Moreno MSN, INSTRUCTOR PRIVATE, AGACNP- d/w Sandra Huddleston M.D
--- NOTE | 2020-08-21 14:39 | NUR ---
REPORT GIVEN TO CLIFTON SANTILLAN FOR TRANSFER OF CARE.
--- NOTE | 2020-08-21 15:00 | NUR ---
Received patient from [facility]. Respiration even and unlabored without SOB. Denies pain at this time. PIV to right AC intact.
--- NOTE | 2020-08-21 21:08 | NUR ---
Patient refused bed alarm.
[2020-08-22] MEDS: SODIUM CHLORIDE 0.9% 1000ML 1,000 ML IV SCH ×3 (01:24→11:06)
[2020-08-22] MEDS: HYDROCODONE/APAP 7.5MG-325MG 1 EA TAB PO PRN ×2 (04:23→10:59)
[2020-08-22 05:47] LABS: BASOPHILS # (AUTO) 0.1 (0.0-0.1); BASOPHILS % 0.7 % (0.0-1.0); EOSINOPHILS # (AUTO) 0.3 (0.0-0.4); EOSINOPHILS % 4.3 % (0.0-6.0); HEMATOCRIT 26.5 % (34.2-44.1); HEMOGLOBIN 8.7 g/dL (12.0-16.0); LYMPHOCYTES # (AUTO) 0.9 (1.0-3.2); LYMPHOCYTES % 11.3 % (18.0-39.1); MEAN CORPUSCULAR HEMOGLOBIN 28.2 pg (28-32); MEAN CORPUSCULAR HGB CONC 32.8 g/dL (31-35); MONOCYTES # (AUTO) 0.8 (0.2-0.8); MONOCYTES % 10.1 % (4.4-11.3); NEUTROPHILS # (AUTO) 5.5 (2.1-6.9); NEUTROPHILS % 72.7 % (38.7-80.0); PLATELET COUNT 148 x10e3/uL (140-360); RED BLOOD COUNT 3.08 x10e6/uL (3.6-5.1); RED CELL DISTRIBUTION WIDTH 15.3 % (11.7-14.4)
[2020-08-22 06:02] LABS: ALANINE AMINOTRANSFERASE 54 IU/L (0-55); ALBUMIN 1.9 g/dL (3.5-5.0); ALBUMIN/GLOBULIN RATIO 0.5 (0.8-2.0); ALKALINE PHOSPHATASE 137 IU/L (40-150); ANION GAP 10.3 mmol/L (8-16); BLOOD UREA NITROGEN 8 mg/dL (7-26); BUN/CREATININE RATIO 11 (6-25); CALCIUM 8.5 mg/dL (8.4-10.2); CARBON DIOXIDE 19 mmol/L (22-29); CHLORIDE 113 mmol/L (98-107); CREATININE, SERUM 0.76 mg/dL (0.57-1.11); EST GLOMERULAR FILTRATION RATE > 60 ML/MIN (60-); GLUCOSE 93 mg/dL (74-118); POTASSIUM 3.3 mmol/L (3.5-5.1); SODIUM 139 mmol/L (136-145)
[2020-08-22 07:44] VITALS: BP 125/76
[2020-08-22 08:09] VITALS: BP 125/76
[2020-08-22] MEDS: DOCUSATE SODIUM 100 MG CAP PO SCH (08:41)
[2020-08-22] MEDS: OXYBUTYNIN CHLORIDE 5 MG TAB PO SCH (08:41)
[2020-08-22] MEDS: FAMOTIDINE 20 MG TAB PO SCH (08:41)
[2020-08-22] MEDS: FLUCONAZOLE 100 MG TAB PO SCH (08:41)
[2020-08-22] MEDS ORDERED: CEFTRIAXONE SOD 2 GM/NS 100 ML 100 ML IV SCH (10:00)
[2020-08-22] MEDS ORDERED: CEFTRIAXONE2 G1 IV (11:57)
[2020-08-22] MEDS ORDERED: TYLENOL # 31 EA PO (11:57)
[2020-08-22] MEDS ORDERED: OXYBUTYNIN CHLOR5 MG PO (11:57)
[2020-08-22] MEDS ORDERED: BELLADONNA-OPI1 EACH PR (11:57)
[2020-08-22] MEDS ORDERED: ACETAMINOPHEN325 M1 PO (11:57)
[2020-08-22] MEDS ORDERED: COLACE100 MG PO (11:57)
[2020-08-22] MEDS ORDERED: PYRIDIUM100 MG PO (11:57)
[2020-08-22] MEDS ORDERED: DIFLUCAN100 MG PO (11:57)
[2020-08-22 12:19] VITALS: BP 121/86
--- NOTE | 2020-08-22 12:25 | NUR ---
Discharge education provided. Prescription given. Verbalized understanding regarding follow-up and see 's office tomorrow. Disharge packet given. PIV to right AC removed. No bleeding noted, catheter tip intact. Given magnesium IV at this time. Awaiting for it to finish. Call light in reach.
[2020-08-22] MEDS ORDERED: MAGNESIUM SULFATE 2GM/50ML 50 ML IV ONE (13:00)
--- NOTE | 2020-08-22 13:19 | NUR ---
MAKEDA SPOKE WITH KENDALL AT DR HUDDLESTON'S OFFICE PT HAS APPT AT DR HUDDLESTON'S TOMORROW AT 2PM D/W PT AND SHE IS AWARE OF APPT TIME AND LOCATION
--- NOTE | 2020-08-22 14:11 | NUR ---
INFECTIOUS DISEASE CONSULT NOTE DR. SANDRA HUDDLESTON CC: back pain, fever REASON FOR CONSULT: UTI HPI:45-year-old woman with previous urolithiasis. The patient in July 2015 underwent stone management and ureteroscopy and placement of a left stent. The patient has not followed up on a long-term basis. She had left-sided flank pain, nausea, and vomiting starting last night reported the emergency room and was subsequently admitted. The patient denies any fevers, and she now denies dysuria. PMH: Obesity SURGICAL HX: n/a SOCIAL HX: denies smoking/drinking FAMILY HX: HTN ROS: back pain PERTINENT POS DOCUMENTED ABOVE PHYSICAL EXAM VS: per chart GENERAL: alert, awake, oriented HEENT: atraumatic, normocephalic CV: s1, s2, no s3, s4 CHEST: rhonchi, symmetric expansion ABD: soft, non-tender, non-distended EXT: moves all, no joint swelling NEURO: no large deficits LABS: reviewed RADIOLOGY: reviewed IMPRESSION: 8 mm left proximal ureteral obstructive calculus results in mild left hydronephrosis and proximal left hydroureter. Extensive left perinephric retroperitoneal fat stranding likely reflective of upper urinary tract infection. Additional 2 mm left upper and left lower pole renal calculi. 7 mm right proximal ureteral calculus without associated hydronephrosis or hydroureter. IMPRESSION: UTI Leukocytosis Sepsis present on admission Bacteremia, gram neg present on admission PLAN: Rocephin x2 weeks appt tomorrow 08/23 at 2pm Midline placed Can discharge when fever free for 24 hours It is very common to run fever for up to 5 days on the correct antibiotics Carmen Moreno MSN, DIRECTOR OF HUMAN RESOURCES, AGACNP- d/w Sandra Huddleston M.D
[2020-08-22] MEDS ORDERED: POTASSIUM CHLORIDE 20 MEQ TAB CR PO NR (14:30)
--- NOTE | 2020-08-22 15:53 | NUR ---
Transported patient via wheelchair to private vehicle with all personal belongings taken.
--- NOTE | 2020-08-22 19:18 | Discharge Summary ---
CONSULTING PHYSICIANS: Include Dr. Aurea Saavedra with Infectious Disease and Dr. Cedrick Pillai with Urology. CHIEF COMPLAINT: Back and abdominal pain. HISTORY: The patient is a 45-year-old female, who admitted with complaints of constant back cramping, began suddenly on night prior to admission. The pain was in the lower back, left more than right, and then began to radiate to the left upper quadrant. She had associated nausea and vomiting, but denied any fever at home. According to the consultation note by Dr. Pillai, the patient had previous urolithiasis and in July 2015, underwent stone management and ureteroscopy and placement of left stent. The patient did not follow up on a long-term basis and denied any current dysuria or fever. PAST MEDICAL HISTORY: Kidney stones, urinary tract infections, candiduria. PAST SURGICAL HISTORY: Breast augmentation, abdominoplasty, tubal ligation, section, cosmetic surgery. FAMILY HISTORY: Brother with diabetes mellitus. SOCIAL HISTORY: Smokes half a pack a day. Occasional alcohol use. Denied illicit drug use. ALLERGIES: NO KNOWN ALLERGIES. ADMITTING DIAGNOSES: 1. Obstructive 8 mm left proximal obstructive calculus with mild hydronephrosis/hydroureter. 2. Urinary tract infection with sepsis, present on admission. 3. Acute kidney injury secondary to #1. DISCHARGE DIAGNOSES: 1. 8 mm obstructive left kidney stone, status post C and R and bilateral stents. 2. Klebsiella urinary tract infection with sepsis, present on admission. 3. Candidal vaginitis. 4. Acute hypomagnesemia. 5. Acute hypokalemia. HOSPITAL COURSE: The patient underwent cystourethroscopy with bilateral ureteral catheterization and retrograde ureteropyelography and insertion of bilateral indwelling ureteral stents on 08/19/[address] Cedrick Pillai. The patient's white blood cell count on admission was 22.03 and today is 7.51, hemoglobin was 11.1 on admission and today 8.7, hematocrit 26.5, and platelets 148. Today, sodium 139, potassium 3.3, chloride 113, CO2 of 19, BUN 8, creatinine 0.76, estimated GFR greater than 60. Calcium 8.5, glucose 93, magnesium 1.6, total bilirubin 0.5, AST 57, ALT 54, alkaline phosphatase 137, total protein 5.5, albumin 1.3, and globulin 3.6. Coronavirus PCR on 08/18 was negative. The patient's urine culture final result on 08/19 showed Klebsiella pneumoniae, 10,000 to 50,000 CFU per mL. On 08/18, the CT of the abdomen and pelvis had shown an 8 mm left proximal ureteral obstructive calculus resulting in mild left hydronephrosis and proximal left hydroureter. Extensive left perinephric retroperitoneal fat stranding, likely reflective of an upper respiratory tract infection, additional 2 mm left upper and left lower pole renal calculi, 7 mm right proximal ureteral calculus without associated hydronephrosis or hydroureter. The patient is seen in room 290, still has some abdominal pain at the pelvic area and left flank at times, but none right now. Yesterday, she had chills, but none today. Hand swollen feet, mildly swollen. Small bowel movement on 08/21. Denies dysuria. Started her menses today. PHYSICAL EXAMINATION: VITAL SIGNS: T-max 99.9. GENERAL: No acute distress. Supine. LUNGS: Clear to auscultation. Respiratory pattern even and unlabored. HEENT: EOMI. NECK: Supple. No lymphadenopathy, thyromegaly, or JVD. CARDIOVASCULAR: Regular rate and rhythm. No murmur. Normal saline at 100 mL an hour into a left midline. ABDOMEN: Bowel sounds positive. Soft, nontender. EXTREMITIES: With no pitting edema. No clubbing, cyanosis, or signs of DVT. NEUROLOGICAL: GCS 15, nonfocal. Stat magnesium level had shown 1.6 waistline joiner. We will give 2 g of magnesium sulfate prior to discharge as well as 40 mEq of potassium chloride orally. The patient will be discharged home on a regular diet. Activity level as tolerated. She is to follow up with her PCP, Dr. Ras Acosta in 1 to 2 weeks. Follow up with Dr. Saavedra tomorrow at 2:00 p.m. for IV cefuroxime. She will be getting 2 g of cefuroxime daily for 2 weeks. Follow up with Dr. Cedrick Pillai as directed, call his office to make an appointment. DISCHARGE PRESCRIPTIONS: Include Tylenol No. 3 one tablet every 4 hours p.r.n. for severe pain, quantity 30; Colace b.i.d.; Tylenol p.r.n.; Diflucan 100 mg p.o. daily for 14 days, which can be adjusted by the Infectious Disease team tomorrow; Belladonna-opium suppository p.r.n. for bladder spasms; oxybutynin chloride 5 mg t.i.d.; Pyridium 100 mg p.r.n. for dysuria. Dictated by Neri Do, MIMEOGRAPH OPERATOR MD RAGHAVENDRA Blake/MODL /[id number]
== END 2020-08-22 15:53 | disposition home or self-care (01) | DRG 854 ==
LOC: ER 09:19 → ERHOLD 12:10 → MED/SURG 13:25 → MED/SURG3 08-21 15:00
PROVIDERS: ADMIT Internal Medicine; ATTEND Internal Medicine
PROC: BT141ZZ Fluoroscopy of Kidneys, Ureters and Bladder using Low Osmolar Contrast (ICD-10-PCS; 2020-08-19)
PROC: 05HY33Z Insertion of Infusion Device into Upper Vein, Percutaneous Approach (ICD-10-PCS; 2020-08-19)
PROC: 0T788DZ Dilation of Bilateral Ureters with Intraluminal Device, Via Natural or Artificial Opening Endoscopic (ICD-10-PCS; principal; 2020-08-19 09:30)
DX: A41.89 Other specified sepsis (principal); N17.9 Acute kidney failure, unspecified; N13.6 Pyonephrosis; N39.0 Urinary tract infection, site not specified; Z11.59 Encounter for screening for other viral diseases; B96.1 Klebsiella pneumoniae [K. pneumoniae] as the cause of diseases classified elsewhere; R31.9 Hematuria, unspecified; R33.9 Retention of urine, unspecified; D64.9 Anemia, unspecified; B37.3 Candidiasis of vulva and vagina; E87.6 Hypokalemia; E83.42 Hypomagnesemia
CPT/HCPCS: 36415; 74176; 74420; 80048; 80053; 81001; 81025; 83735; 83970; 84550; 85025; 87040; 87071; 87086; 87186; 87205; 96361; 99284; C1758; C1769; C2617; J0696; J1100; J1580; J1885; J2001; J2250; J2270; J2405; J2543; J3010; J3475; J7030; J7040